=== PATIENT | male | born 1960 | race Caucasian/White ===

== ENCOUNTER 2022-11-26 17:53 | Observation (INO) ==
--- NOTE | 2022-11-26 17:58 | ED Triage Note ---
Date of Service November 26, 2022 History of Present Illness This patient was briefly evaluated while in triage. An abbreviated physical exam was performed. This patient is a 62-year-old Male who presents to the ED for evaluation of playing golf and got acutely dizzy, sweaty, nausea, near syncopal - 1730 did not pass out feels better, but feels like symptoms could come back no headache, no chest pain didn't have lunch today, doesn't drink a lot of water Physical Exam GENERAL: NAD, seated in a wheelchair CARDIOVASCULAR: RRR RESPIRATORY: CTA ABDOMEN: BS x 4. Nontender to palpation. Initial orders for labs and / or imaging were placed and patient was placed in the waiting area until a bed is available. Please see further documentation for the full ED course.
[2022-11-26 18:52] LABS: Basophils # (auto) 0.05 K/uL (0-0.2); Basophils % (auto) 0.6 %; Eosinophils # (auto) 0.07 K/uL (0-0.50); Eosinophils % (auto) 0.9 %; Hematocrit (blood only) 42.1 % (42.0-52.0); Hemoglobin 14.8 g/dl (14.0-18.0); Immature Granulocytes # (auto) 0.03 K/uL (0.01-0.20); Immature Granulocytes % (auto) 0.4 %; Lymphocytes # (auto) 2.37 K/uL (1.2-3.4); Lymphocytes % (auto) 28.9 %; Mean Corpuscular Hemoglobin 32.1 pg (25.0-34.0); Mean Corpuscular Hgb Conc 35.2 g/dL (32.0-36.0); Mean Corpuscular Volume 91.3 fL (80.0-100.0); Mean Platelet Volume 11.9 fL (9.4-12.4); Monocytes % (auto) 8.5 %; Neutrophils # (auto) 4.99 K/uL (1.40-6.50); Neutrophils % (auto) 60.7 %; Platelet Count 243 K/uL (130-400); RDW Coefficient of Variation 12.7 % (11.5-14.5); RDW Standard Deviation 42.5 fL (36.4-46.3); Red Blood Count 4.61 M/uL (4.70-6.10); White Blood Count 8.21 K/ul (4.8-10.8)
[2022-11-26 19:03] LABS: Alanine Aminotransferase 16 U/L (7-52); Albumin Globulin Ratio 1.5 (0.9-2); Albumin Level 4.4 gm/dl (3.4-5.0); Alkaline Phosphatase 53 U/L (34-104); Anion Gap 6 (3-11); Aspartate Aminotransferase 21 U/L (13-39); BUN Creatinine Ratio 13.7 (10-20); Bilirubin,Total 0.5 mg/dl (0.2-1.0); Blood Urea Nitrogen 14 mg/dl (6-23); Calcium 9.2 mg/dl (8.6-10.3); Carbon Dioxide 27 mmol/L (21-32); Chloride 105 mmol/L (98-107); Est GFR (African American) 90.2 ml/min; Est GFR (Non-African American) 77.9 ml/min; Globulin 2.9 gm/dl (2.5-4.0); Glucose 104 mg/dl (70-99(Fasting)); Potassium 3.6 mmol/L (3.5-5.1); Sodium 138 mmol/L (136-145); Total Protein 7.3 gm/dl (6.0-8.3)
[2022-11-26 19:08] LABS: Troponin I High Sensitivity 3.1 pg/ml (0-20)
--- NOTE | 2022-11-26 20:16 | CT Scan Report ---
CT OF THE HEAD WITHOUT CONTRAST CLINICAL HISTORY: dizzy, near syncopal COMPARISON STUDY: No previous studies for comparison. CT DOSE: 614.27 mGy.cm TECHNIQUE: Helical axial images of the head were obtained without IV contrast. Automated exposure con trol was utilized for the study. A dose lowering technique was utilized adhering to the principles o f ALARA. FINDINGS: No acute intracranial hemorrhage, midline shift or mass effect is present. The ventricular system is unremarkable. The basal cisterns are patent. No extra-axial collections are present. There are no findings to suggest acute dural sinus thrombosis or acute territorial infarct. No significant calvarial abnormalities are present. Visualized portions of the sinuses and mastoid air cells are fermin ar. IMPRESSION: No acute intracranial findings. ACT 112: Negative or not required by law. Electronically signed by: Joseluis Randall M.D. 11/26/2022 8:14 PM
--- NOTE | 2022-11-26 20:43 | XRay Report ---
XR chest 1V portable CLINICAL HISTORY: dizzy, near syncope COMPARISON STUDY: No previous studies for comparison. FINDINGS: Lung volumes are normal. Lungs are clear. There is no pneumothorax or pleural effusion. Car diac size is normal. Mediastinal contours are normal. There is no evidence for pulmonary edema. IMPRESSION: No acute cardiopulmonary findings. ACT 112: Negative or not required by law. Electronically signed by: Joseluis Randall M.D. 11/26/2022 8:42 PM
[2022-11-26] MEDS ORDERED: MECLIZINE HCL 25 MG TAB PO STA (20:46)
[2022-11-26] MEDS ORDERED: SODIUM CHLORIDE 0.9% 1000ML 500 ML IV ONE (20:46)
[2022-11-26] MEDS ORDERED: ONDANSETRON INJ 2 MG/ML 2 ML VIAL IV STA (20:46)
[2022-11-26] MEDS ORDERED: LORazepam 2 MG/1 ML VIAL IV STA (20:46)
--- NOTE | 2022-11-27 00:38 | Emergency Department Note ---
Impression & Plan Dizziness, Diplopia ED Provider Note INFORMANT: Patient and family ED PROVIDER(S): Redd Marc MD CHIEF COMPLAINT: Dizziness PLAN: Disposition: Admitted Condition: Good Outpatient prescription management: none Referral: None MEDICAL DECISION MAKING: Patient presented because of dizziness and vertigo-like symptoms. He had no focal findings on neurologic examination however he did have significant nystagmus and a positive Hallpike. The patient was treated with IV fluids, IV Zofran, IV Ativan, and oral meclizine. He rested and was starting to feel much better. The vomiting and nausea had stopped. Patient did ambulate to the bathroom without significant difficulty although did have some additional dizziness. On further discussion the patient noted that he was having double vision. On first history the patient denied any double vision issues. Family did note that he commented several times to them about the TV and objects in the room splitting. At this point I discussed the need for further management with MR imaging. This was ordered in order to evaluate for any posterior circulation issues. MR imaging was negative. On reassessment the patient was feeling better. Symptoms were concerning for posterior circulation TIA. Discussed the case with Dr. Sargent of neurology. He agreed with concerns and recommended further work-up in the hospital. Consultation was made with the [facility] service. Patient was evaluated in the ER and admitted for further management. Patient was given aspirin. After review of the information above and other included data, I feel the patient requires admission. Triage Nursing notes reviewed and agree them. Vital Signs: reviewed and remarkable for no significant abnormalities Prior /Outside records reviewed: none Differential diagnosis: Benign positional vertigo, dehydration, hypovolemia, anemia, tumor, infection, hypoglycemia, electrolyte abnormalities, cardiac sources, intracerebral event, toxicologic, neurologic, as well as other pathologies. Diagnostics, as interpreted by me: ECG: Twelve-lead ECG reveals sinus bradycardia [address] elevation or pression. No PACs or PVCs. Cardiac Monitoring: Cardiac monitoring ordered by me: The patient was placed on continuous cardiac monitoring and observed. It revealed a normal sinus rhythm at 61 beats per minute without ectopy or evidence of dysrhythmia. Medical decision rules: none Imaging studies: Head CT: A noncontrast CT scan of the head was performed and was negative for tumor, fracture, intracranial hemorrhage, or other acute pathology. HPI: The patient is a 62year old male who presents to the Emergency Room with complaints of dizziness. This started this afternoon while golfing and is persisting. Patient notes feeling worse with head movement. The patient also notes the following associated symptoms, nausea, sweating, feeling that he may pass out. Patient also noted blurry vision. The patient has found no relieving factors. Current pain is rated as 0/10. No prior history of the same. Pt denies LOC, headache, fevers, chills, diaphoresis, visual changes, neck pain, chest pain, breathing difficulties, nausea, abdominal pain, back pain, melena, hematochezia, urinary symptoms, numbness, weakness, lymphadenopathy, rash, or other complaints. PAST MEDICAL HISTORY: See Below, patient denies PAST SURGICAL HISTORY: See Below, SOCIAL HISTORY: See Below, HOME MEDICATIONS: See Below ALLERGIES: See Below VITALS: See Below PHYSICAL EXAMINATION: GENERAL: Awake, alert, uncomfortable-appearing, in no distress HENT: Normocephalic, atraumatic. Oropharynx unremarkable. EYES: Normal conjunctiva. Sclera non-icteric. PERRLA. EOMI. Lateral nystagmus noted. No vertical or rotatory nystagmus. NECK: Inspection normal. Non-tender. Supple. No nuchal rigidity. FROM. No masses. RESPIRATORY: Clear to auscultation. No wheezes. No rales. Normal respiratory effort. CARDIAC: Normal rate. Normal rhythm. No murmurs. No rubs. Extremities warm and well perfused. Pulses equal. No JVD. GI: Soft, non-distended. No tenderness to palpation. No rebound or guarding. No masses. RECTAL: Deferred. MUSCULOSKELETAL: Atraumatic. Chest examination reveals no tenderness. The back is symmetrical on inspection without obvious abnormality. There is no CVA tenderness to palpation. No joint edema. LOWER EXTREMITIES: Calves are equal size bilaterally and non-tender. No edema. No discoloration. NEURO: Normal sensorium. No sensory or motor deficits noted. Speech normal. Normal rapid alternating movements. Positive Hallpike SKIN: No rash or jaundice noted. Past Med/Surg History Social History Smoking Status: Never smoker Second Hand Exposure: No; Do You Dip or Chew Tobacco: No; Hx Alcohol Use: No Hx Substance Use: No Preferred Language: Malawian Communication Ability: Effective Communication Tools: Other [email or web address] Android Developer Required: Voice Beliefs That Will Affect Care: None Current Living Situation: Spouse Feels Safe at Home: Yes Assistive Devices: None Allergies Allergies Allergy/AdvReac Type Severity Reaction Status Date / Time No Known Allergies Allergy Unverified 11/26/22 20:55 Home Meds Previous Rx's Medication Instructions Recorded meclizine 12.5 mg tablet 12.5 mg PO TID PRN dizziness #20 11/27/22 tabs Results & Data (ED) Vital Signs Vital Signs - 24 hr 11/27/22 03:30 Pulse Rate 71 Respiratory Rate 16 Pulse Oximetry 95 Oxygen Delivery Method Room Air Laboratory Data 11/26/22 18:27 11/26/22 18:27 Lab Results 11/26/22 11/26/22 11/26/22 Range/Units 18:27 18:27 18:27 WBC 8.21 (4.8-10.8) K/ul RBC 4.61 L (4.70-6.10) M/uL Hgb 14.8 (14.0-18.0) g/dl Hct 42.1 (42.0-52.0) % MCV 91.3 (80.0-100.0) fL MCH 32.1 (25.0-34.0) pg MCHC 35.2 (32.0-36.0) g/dL RDW Std Deviation 42.5 (36.4-46.3) fL RDW Coeff of Roxanne 12.7 (11.5-14.5) % Plt Count 243 (130-400) K/uL MPV 11.9 (9.4-12.4) fL Immature Gran % (Auto) 0.4 % Neut % (Auto) 60.7 % Lymph % (Auto) 28.9 % [place] % (Auto) 8.5 % Eos % (Auto) 0.9 % Baso % (Auto) 0.6 % Neut # (Auto) 4.99 (1.40-6.50) K/uL Lymph # (Auto) 2.37 (1.2-3.4) K/uL [place] # (Auto) 0.70 H (0.11-0.59) K/uL Eos # (Auto) 0.07 (0-0.50) K/uL Baso # (Auto) 0.05 (0-0.2) K/uL Immature Gran # (Auto) 0.03 (0.01-0.20) K/uL Sodium 138 (136-145) mmol/L Potassium 3.6 (3.5-5.1) mmol/L Chloride 105 (98-107) mmol/L Carbon Dioxide 27 (21-32) mmol/L Anion Gap 6 (3-11) BUN 14 (6-23) mg/dl Creatinine 1.02 (0.6-1.4) mg/dl Est Cr Clr Drug Dosing Not Reportable Est GFR ( Amer) 90.2 ml/min Est GFR (Non-Af Amer) 77.9 ml/min BUN/Creatinine Ratio 13.7 (10-20) Glucose 104 H (70-99(Fasting)) mg/dl Calcium 9.2 (8.6-10.3) mg/dl Total Bilirubin 0.5 (0.2-1.0) mg/dl AST 21 (13-39) U/L ALT 16 (7-52) U/L Alkaline Phosphatase 53 (34-104) U/L Troponin I High Sens 3.1 (0-20) pg/ml Total Protein 7.3 (6.0-8.3) gm/dl Albumin 4.4 (3.4-5.0) gm/dl Globulin 2.9 (2.5-4.0) gm/dl Albumin/Globulin Ratio 1.5 (0.9-2) TSH 1.783 (0.300-4.500) uIu/ml Administered Medications Discontinued Medications Aspirin (Aspirin Chew 324 Mg) Confirm Administered Dose 324 mg .ROUTE .STK-MED ONE Stop: 11/27/22 02:55 Last Admin: 11/27/22 03:50 Dose: 324 mg Documented By: REJI Aspirin (Aspirin 81 Mg Chew) 324 mg PO NOW STA Stop: 11/27/22 03:36 Last Admin: 11/27/22 03:50 Dose: Not Given Documented By: REJI Aspirin (Aspirin 81 Mg Ectab) 81 mg PO DAILY PIYUSH Stop: 12/27/22 08:59 Last Admin: 11/27/22 08:28 Dose: 81 mg Documented By: VENECIA Gadobutrol (Gadobutrol 65ml Vial) 9.5 ml IV ONCE ONE Stop: 11/27/22 01:42 Last Admin: 11/27/22 01:41 Dose: 9.5 ml Documented By: SONY Sodium Chloride (Nss 1000ml) 500 mls @ 999 mls/hr IV .Q31M ONE Stop: 11/26/22 21:16 Last Infusion: 11/26/22 22:36 Dose: 0 mls/hr Documented By: Admin: 11/26/22 21:08 Dose: 999 mls/hr Documented By: DEVEN Sodium Chloride (Nss 1000ml) 1,000 mls @ 125 mls/hr IV .Q8H PIYUSH Stop: 11/27/22 21:44 Last Infusion: 11/27/22 07:36 Dose: 0 mls/hr Documented By: Admin: 11/27/22 06:28 Dose: 125 mls/hr Documented By: GIOVANNI Lorazepam (Lorazepam 2 Mg/1 Ml Vial) 1 mg IV NOW STA Stop: 11/26/22 20:47 Last Admin: 11/26/22 21:10 Dose: 1 mg Documented By: DEVEN Meclizine HCl (Meclizine Hcl 25 Mg Tab) 25 mg PO NOW STA Stop: 11/26/22 20:47 Last Admin: 11/26/22 21:06 Dose: 25 mg Documented By: DEVEN Ondansetron HCl (Ondansetron Inj 2 Mg/Ml 2 Ml Vial) 4 mg IV NOW STA Stop: 11/26/22 20:47 Last Admin: 11/26/22 21:09 Dose: 4 mg Documented By: DEVEN Imaging Data Radiologist's Impression: Chest X-Ray 11/26/22 17:59 XR chest 1V portable CLINICAL HISTORY: dizzy, near syncope COMPARISON STUDY: No previous studies for comparison. FINDINGS: Lung volumes are normal. Lungs are clear. There is no pneumothorax or pleural effusion. Cardiac size is normal. Mediastinal contours are normal. There is no evidence for pulmonary edema. IMPRESSION: No acute cardiopulmonary findings. ACT 112: Negative or not required by law. Electronically signed by: Joseluis Randall M.D. 11/26/2022 8:[address] 11/26/22 17:59 CT OF THE HEAD WITHOUT CONTRAST CLINICAL HISTORY: dizzy, near syncopal COMPARISON STUDY: No previous studies for comparison. CT DOSE: 614.27 mGy.cm TECHNIQUE: Helical axial images of the head were obtained without IV contrast. Automated exposure control was utilized for the study. A dose lowering technique was utilized adhering to the principles of ALARA. FINDINGS: No acute intracranial hemorrhage, midline shift or mass effect is present. The ventricular system is unremarkable. The basal cisterns are patent. No extra-axial collections are present. There are no findings to suggest acute dural sinus thrombosis or acute territorial infarct. No significant calvarial abnormalities are present. Visualized portions of the sinuses and mastoid air cells are clear. IMPRESSION: No acute intracranial findings. ACT 112: Negative or not required by law. Electronically signed by: Joseluis Randall M.D. 11/26/2022 8:14 PM Discharge Plan Visit Data Chief Complaint: Vertigo Stated Complaint: DIZZY,COULDN'T STAND,SWEATING ED Provider: Redd Marc Discharge Problem: Dizziness, Diplopia Patient Disposition: Admitted As Inpatient Discharge Instructions Interventions: ED Discharge Assessment Last Done: 11/27/22 05:29
--- NOTE | 2022-11-27 01:13 | Magnetic Resonance Report ---
Exam(s): MRA HEAD Without Contrast EXAM: MR Angiography Head Without Intravenous Contrast CLINICAL HISTORY: Reason for exam: eval for stroke, diploplia. TECHNIQUE: Magnetic resonance angiography images of the head without intravenous contrast. COMPARISON: CT examination of the head from earlier the same day. FINDINGS: Right internal carotid artery: No acute findings. Intracranial segment is patent with no significant stenosis. No aneurysm. Right anterior cerebral artery: Unremarkable. No occlusion or significant stenosis. No aneurysm. Right middle cerebral artery: Unremarkable. No occlusion or significant stenosis. No aneurysm. Right posterior cerebral artery: Unremarkable. No occlusion or significant stenosis. No aneurysm. Right vertebral artery: Unremarkable as visualized. Left internal carotid artery: No acute findings. Intracranial segment is patent with no significant stenosis. No aneurysm. Left anterior cerebral artery: Unremarkable. No occlusion or significant stenosis. No aneurysm. Left middle cerebral artery: Unremarkable. No occlusion or significant stenosis. No aneurysm. Left posterior cerebral artery: Unremarkable. No occlusion or significant stenosis. No aneurysm. Left vertebral artery: Unremarkable as visualized. Basilar artery: Unremarkable. No occlusion or significant stenosis. No aneurysm. IMPRESSION: Normal head/brain MRA. Electronically signed by: Nabeel Shaver MD 11/27/22 01:12 AM
--- NOTE | 2022-11-27 01:23 | Magnetic Resonance Report ---
Exam(s): MRI HEAD Without Contrast EXAM: MR Head Without Intravenous Contrast CLINICAL HISTORY: Reason for exam: stroke eval, vertigo, diploplia. TECHNIQUE: Magnetic resonance images of the head/brain without intravenous contrast in multiple planes. COMPARISON: CT examination from earlier the same day. FINDINGS: Brain: The cerebral and cerebellar sulci are mildly prominent consistent with mild brain atrophy. There are a few punctate areas of abnormal T2 signal in the deep cerebral white matter most consistent with mild small vessel ischemic/degenerative changes. No hemorrhage. Ventricles: Unremarkable. No ventriculomegaly. Bones/joints: Unremarkable. Sinuses: There is mild scattered sinus mucosal disease. No acute sinusitis. Mastoid air cells: Unremarkable as visualized. No mastoid effusion. Orbits: Unremarkable as visualized. IMPRESSION: No acute findings in the head/brain. Electronically signed by: Nabeel Shaver MD 11/27/22 01:22 AM
[2022-11-27] MEDS ORDERED: GADOBUTROL 65ML VIAL IV ONE (01:41)
--- NOTE | 2022-11-27 01:55 | Magnetic Resonance Report ---
Exam(s): MRA NECK W/WO Contrast IV Amt: 9.5cc gadavist EXAM: MR Angiography Neck Without and With Intravenous Contrast CLINICAL HISTORY: Reason for exam: eval for stroke, diploplia. TECHNIQUE: Magnetic resonance angiography images of the neck without and with intravenous contrast. CONTRAST: Patient received 9.5cc gadavist of IV contrast COMPARISON: No relevant prior studies available. FINDINGS: Right common carotid artery: Unremarkable. No significant stenosis. No dissection or occlusion. Right internal carotid artery: Unremarkable. Extracranial segment is patent with no significant stenosis. No dissection or occlusion. Right external carotid artery: Unremarkable. No occlusion. Right vertebral artery: Unremarkable. No significant stenosis. No dissection or occlusion. Left common carotid artery: Unremarkable. No significant stenosis. No dissection or occlusion. Left internal carotid artery: Unremarkable. Extracranial segment is patent with no significant stenosis. No dissection or occlusion. Left external carotid artery: Unremarkable. No occlusion. Left vertebral artery: Unremarkable. No significant stenosis. No dissection or occlusion. Soft tissues: Unremarkable as visualized. CAROTID STENOSIS REFERENCE USING NASCET CRITERIA: % ICA stenosis = (1 - narrowest ICA diameter/diameter of distal cervical ICA) x 100. Mild - <50% stenosis. Moderate - 50-69% stenosis. Severe - 70-94% stenosis. Near occlusion - 95-99% stenosis. Occluded - 100% stenosis. IMPRESSION: Normal neck MRA. Electronically signed by: Nabeel Shaver MD 11/27/22 01:54 AM
[2022-11-27] MEDS ORDERED: ASPIRIN CHEW 324 MG ONE (02:54)
[2022-11-27] MEDS ORDERED: ASPIRIN 81 MG CHEW PO STA (03:35)
[2022-11-27] MEDS ORDERED: ONDANSETRON INJ 2 MG/ML 2 ML VIAL IV PRN (05:45)
[2022-11-27] MEDS ORDERED: MECLIZINE 12.5 MG TAB PO PRN (05:45)
[2022-11-27] MEDS ORDERED: NITROGLYCERIN SL 0.4 MG/TAB TAB SL PRN (05:45)
[2022-11-27] MEDS ORDERED: SODIUM CHLORIDE 0.9% 1000ML 1,000 ML IV SCH (05:45)
[2022-11-27] MEDS ORDERED: ACETAMINOPHEN 325 MG TAB PO PRN (05:45)
[2022-11-27] MEDS ORDERED: PHARMACIST DISCHARGE MED REC CONSULT PRN (05:45)
--- NOTE | 2022-11-27 06:44 | History and Physical Report ---
DATE OF ADMISSION: 11/27/2022. CHIEF COMPLAINT: Vertigo. HISTORY OF PRESENT ILLNESS: This is a 62-year-old male with no significant past medical history. The patient did not go to the doctor for the last 20 years. Comes with vertigo. The patient was golfing and around 5:00 p.m. he suddenly felt dizziness, spinning kind of feeling associated with nausea. He came to the ER and he was given meclizine, Ativan, and Zofran. Initial CT of the head was okay. At one point of time, he felt double vision. ER did an MRI of the head and MRA head/neck, which was unremarkable, ER notified neurology because of the symptoms and also the question of TIA getting admitted for observation. Currently, his vertigo is almost resolved. Nausea has improved. Denies any headache. No blurred visions, no earache, no runny nose, no sore throat, no cough, no recent upper respiratory infection. No chest pain or shortness of breath, no difficulty swallowing. No abdominal pain. Normal bowel and bladder movements. No swelling in the legs. Currently, resting comfortably and hemodynamically stable. He says his father had a heart attack at 69 and his uncle had a heart attack at 69. His brother had a stroke at 65. ALLERGIES: No known drug allergies. PAST MEDICAL HISTORY: As mentioned above. PAST SURGICAL HISTORY: None. MEDICATIONS: None. FAMILY HISTORY: Brother had a stroke a 65; father and uncle had ND at age of 69. SOCIAL HISTORY: Denies smoking. Alcohol, drinks 2-3 beers per week. No drug use. REVIEW OF SYSTEMS: As per HPI. Rest of review of systems is negative. PHYSICAL EXAMINATION: GENERAL: The patient is of moderate build, not in acute distress. VITAL SIGNS: Temperature 36, pulse 71, respiratory rate 16, blood pressure 125/73, oxygen 95% on room air. HEENT: Pupils equal, round, and reactive to light. Extraocular muscles intact. Mild horizontal nystagmus present. Oral mucosa moist. NECK: No JVD. No neck masses. CARDIOVASCULAR: S1 and S2 heard. Regular rate and rhythm. No murmur, no gallop. RESPIRATORY SYSTEM: Normal AP diameter. No accessory muscle use. No wheezing or crackles. ABDOMEN: Soft, bowel sounds present, nontender, no distention. CENTRAL NERVOUS SYSTEM: Alert and oriented. Speech is clear. No facial droop. Power 5/5 in all extremities. Coordination of movements normal. No pronator drift. Sensation is intact. EXTREMITIES: No edema, no erythema. LABORATORY DATA: WBC 8.2, hemoglobin 14.8, hematocrit 42.1, platelets 243. Sodium 138, potassium 3.6, chloride 105, bicarb 27, BUN 14, creatinine 1, serum glucose 104, calcium 9.2, total bilirubin 0.5, AST 21, ALT 16, alkaline phosphatase 53. Troponin 3.1. TSH 1.7. IMAGING DATA: Brain MRI, no acute findings. Head MRA, no acute findings. Neck MRA, no acute findings. CT of the head, no acute findings. Chest x-ray, no acute findings. EKG: Sinus bradycardia at a rate of 58, no acute ST changes seen. ASSESSMENT AND PLAN: This is a 62-year-old male, who presents with vertigo. 1. Vertigo: Brief episode of double vision.Has horizontal nystagmus Possible transient ischemic attack. Initial workup with CT of the head and brain MRI and MRA of the head and neck unremarkable. Received aspirin. Neurology notified by the ER. Will observe in the hospital in the tele floor. Will do echocardiogram. PT, OT, speech evaluation. Consult neurology in the a.m. Follow the lipid profile and HbA1c levels as per the protocol. IV fluids, n.p.o. and speech consult. Meclizine p.r.n. 2. Deep venous thrombosis prophylaxis: Sequential compression devices. DISPOSITION: Observation in the tele floor. PT, OT prior to discharge. Social service to help with discharge planning. Job ID: [id number] [facility]
[2022-11-27] MEDS ORDERED: ASPIRIN 81 MG ECTAB PO SCH (09:00)
--- NOTE | 2022-11-27 11:40 | Neurology Consultation ---
Date of Consultation November 27, 2022 Assessment & Plan (1) BPPV (benign paroxysmal positional vertigo): (2) Vertigo: Plan 62-year-old male with probable benign positional paroxysmal vertigo. He has a positive Carter-Hallpike to the left. His symptoms are significantly improved this morning. No evidence of acute or subacute stroke on MRI, no vascular lesion on MRA of the head and neck. No known history of cardiovascular risk factors such as hypertension, dyslipidemia, or diabetes mellitus. He does not take any prescription medications or blood thinners as an outpatient. He does have chronic hearing loss, left greater than right, no tinnitus or ear pain. Vertebrobasilar insufficiency, vertebral artery dissection, brainstem stroke, would appear to be adequately excluded at this time. He is clinically improved this morning. At this point, I do not think this patient would require daily low-dose aspirin therapy or other blood thinners. May utilize meclizine for recurrent symptoms. Could also consider referral to physical therapy for Sly maneuvers and/or habituation exercises if necessary going forward. No further immediate neurologic recommendations. Would not require additional outpatient neurology follow-up. History of Present Illness Reason for Consultation: Strokelike symptoms Requesting Physician: Dr. Lamb Attending Physician: Bull Flood MD History of Present Illness The patient is a 62-year-old male who presented to the emergency department yesterday for further assessment of an episode of intense vertigo with associated nausea and diaphoresis that began acutely while he was playing golf. He had some inducible nystagmus during his assessment in the emergency department and he was felt to probably have benign positional paroxysmal vertigo. He has never had similar symptoms in the past. He does have chronic hearing loss, left greater than right, wears hearing aids, no tinnitus or ear pain, no recent URI or other infections reported. His symptoms were quite severe, however, with continued nystagmus, had also complained of some transient diplopia prompting concern for possible strokelike episode. An MRI of the brain including MRA of the head and neck were unremarkable, however. I had discussed his case with the attending emergency department physician last night. Given the severity of his symptoms, acuity, possibility of posterior circulation stroke, admission to the [facility] was recommended for formal stroke/TIA evaluation. It is notable that he does not have any known past medical history although he has admittedly not seen a physician in nearly 20 years. No known history of hypertension, dyslipidemia, or diabetes, he is a non-smoker. 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 This morning, for the most part, he feels improved although continues to report a vague feeling of dizziness or imbalance with movement. No diplopia, dysarthria, drop attack, or focal weakness of the limbs. Allergies Allergy/AdvReac Type Severity Reaction Status Date / Time No Known Allergies Allergy Unverified 11/26/22 20:55 Home Medications Medication Instructions Recorded Confirmed Type No Known Home Medications 11/26/22 11/26/22 History Patient History Social History Smoking Status: Never smoker Second Hand Exposure: No; Do You Dip or Chew Tobacco: No; Tobacco Cessation Education Requested by Patient: No Hx Alcohol Use: No Hx Substance Use: No Preferred Language: Kinyarwanda Communication Ability: Effective Communication Tools: Other [employer] Required: Voice Beliefs That Will Affect Care: None Current Living Situation: Spouse Feels Safe at Home: Yes Safety Concerns: Feels Safe At This Time Assistive Devices: None Review of Systems Constitutional: no fever and no chills Eyes: as per Subjective / HPI Ear, Nose, Mouth, Throat: as per Subjective / HPI Respiratory: no cough and no dyspnea Cardiovascular: no chest pain and no palpitations Gastrointestinal: no nausea and no vomiting Genitourinary: no dysuria Musculoskeletal: no back pain, no neck pain and no myalgia Integumentary: no rash and no lesions Neurologic: as per Subjective / HPI Psychiatric: no depression and no anxiety Hematologic / Lymphatic: no easy bleeding and no easy bruising Exam (Neuro) Constitutional: well developed and well nourished; no acute distress Eyes: normal visual arriaga by confrontation, PERRL, normal accommodation, EOM intact bilaterally and + nystagmus; no fundoscopic abnormality and no papilledema Cardiovascular: Vessels: normal carotid upstroke; no carotid bruit Neurologic: Oriented to:: Person, Place and Time Memory: Short Term Intact and Remote Intact Attention: Span Intact and Concentration Intact Language: Naming Objects and Repeating Phrases Speech Fluency: negative Dys arthria Speech Aphasia: negative Aphasia Fund of Knowledge: Current Events, Past History and Vocabulary Cranial Nerves: Normal II (Visual arriaga full to confrontation, visual acuity normal), III, IV, (Pupils equal round reactive to light and accommodation, eye movements normal), V (Facial sensation intact), VII (There is no facial droop or weakness), VIII (Hearing intact), IX, X (Palate elevates to midline), XI (Shoulder shrug intact) and XII (Tongue protrudes to midline) Motor Strength: Normal Lower Extremities and Normal Upper Extremities; negative Pronator Drift Motor Tone: Normal Lower Extremities and Normal Upper Extremities Muscle Bulk/Involuntary Movements: No Involuntary Movements; negative Muscle Atrophy Sensation: Light Touch Intact, Pain/Temperature Intact, Vibration Intact and Proprioception Intact Coordination: Normal; negative Limited Balance, Dysdiadochokinesia, Finger-Nose Abnormal or Heel-Pool Abnormal Deep Tendon Reflexes: Rt Triceps: 2+, Lt Triceps: 2+, Rt Biceps: 2+, Lt Biceps: 2+, Rt Brachioradialis: 2+, Lt Brachioradialis: 2+, Rt Patellar: 2+, Lt Patellar: 2+, Rt Ankle: 2+ and Lt Ankle: 2+ Special Tests: negative Babinski Present Gait: Normal Station and Gait Details: I am able to elicit a few beats of gaze evoked nystagmus to the left. [place]- Hallpike was positive to the left as well. He does have a very slight right upper lid ptosis, chronic according to the patient. There is no pupillary asymmetry. Again, tongue and palate midline, no ataxia with [id number] or [id number], no dysarthria. He does have relatively reduced hearing to finger rub on the left, chronic. Results & Data Vital Signs (Past 12 Hours) Vital Signs Temp Pulse Pulse Resp BP BP Pulse Ox 11/27/22 11:18 36.7 C 64 18 132/77 96 11/27/22 05:47 59 L 11/27/22 07:32 36.4 C L 54 L 17 131/75 99 11/27/22 06:22 11/27/22 05:58 36.3 C L 56 L 16 133/78 93 11/27/22 05:00 59 L 12 139/72 95 11/27/22 04:30 65 13 123/92 95 11/27/22 04:27 73 13 138/80 97 11/27/22 04:36 60 11/27/22 04:00 62 13 96 11/27/22 03:30 71 16 95 04/27/23 02:33 67 18 96 11/27/22 01:43 66 19 125/73 98 11/27/22 01:41 125/73 95 11/27/22 00:30 61 14 122/76 95 11/27/22 00:00 64 14 130/86 96 11/27/22 00:20 64 11/26/22 23:51 62 17 134/82 95 11/26/22 23:49 75 16 96 O2 Del Method 11/27/22 11:18 Room Air 11/27/22 05:47 11/27/22 07:32 Room Air 11/27/22 06:22 Room Air 11/27/22 05:58 Room Air 11/27/22 05:00 Room Air 11/27/22 04:30 Room Air 11/27/22 04:27 Room Air 11/27/22 04:36 11/27/22 04:00 Room Air 11/27/22 03:30 Room Air 11/27/22 02:33 Room Air 11/27/22 01:43 Room Air 11/27/22 01:41 Room Air 11/27/22 00:30 Room Air 11/27/22 00:00 Room Air 11/27/22 00:20 11/26/22 23:51 Room Air 11/26/22 23:49 Room Air Laboratory Results WBC 8.21, hemoglobin 14.8, hematocrit 42.1, platelet count 243, sodium 138, potassium 3.6, BUN 14, creatinine 1.02, AST 21, ALT 16, TSH 1.73, SARS-CoV-2 negative Diagnostic Findings I did independently review the MRI of the brain including MRA of the head and neck. No abnormalities identified. No acute or subacute stroke, no hemorrhage, no hydrocephalus, no vascular lesion. No thrombosis, no dissection. The right vertebral artery is dominant. Echocardiogram completed today unremarkable, no cardioembolic source, normal left ventricular wall motion, EF 55 to 60%. Left atrial size normal, no interatrial shunt. Electrocardiogram reveals sinus bradycardia, 58 bpm. PG Care Time/CCT Total # of Minutes Spent Total Time Spent with Patient: Total time spent is greater than 50% in coordination of care (as documented) at patient's floor/unit and/or counseling patient: 60 minutes Coding Level of Care Code 41623 INT INP/OBS CARE 2/55MIN Diagnoses BPPV (benign paroxysmal positional vertigo) H81.10 Vertigo R42
--- NOTE | 2022-11-27 16:03 | Discharge Summary ---
Date of Service November 27, 2022 Admission HPI Per Admitting Provider This is a 62-year-old male with no significant past medical history. The patient did not go to the doctor for the last 20 years. Comes with vertigo. The patient was golfing and around 5:00 p.m. he suddenly felt dizziness, spinning kind of feeling associated with nausea. He came to the ER and he was given meclizine, Ativan, and Zofran. Initial CT of the head was okay. At one point of time, he felt double vision. ER did an MRI of the head and MRA head/neck, which was unremarkable, ER notified neurology because of the symptoms and also the question of TIA getting admitted for observation. Currently, his vertigo is almost resolved. Nausea has improved. Denies any headache. No blurred visions, no earache, no runny nose, no sore throat, no cough, no recent upper respiratory infection. No chest pain or shortness of breath, no difficulty swallowing. No abdominal pain. Normal bowel and bladder movements. No swelling in the legs. Currently, resting comfortably and hemodynamically stable. He says his father had a heart attack at 69 and his uncle had a heart attack at 69. His brother had a stroke at 65. Admission Exam Per Admitting Provider GENERAL: The patient is of moderate build, not in acute distress. VITAL SIGNS: Temperature 36, pulse 71, respiratory rate 16, blood pressure 125/73, oxygen 95% on room air. HEENT: Pupils equal, round, and reactive to light. Extraocular muscles intact. Mild horizontal nystagmus present. Oral mucosa moist. NECK: No JVD. No neck masses. CARDIOVASCULAR: S1 and S2 heard. Regular rate and rhythm. No murmur, no gallop. RESPIRATORY SYSTEM: Normal AP diameter. No accessory muscle use. No wheezing or crackles. ABDOMEN: Soft, bowel sounds present, nontender, no distention. CENTRAL NERVOUS SYSTEM: Alert and oriented. Speech is clear. No facial droop. Power 5/5 in all extremities. Coordination of movements normal. No pronator drift. Sensation is intact. EXTREMITIES: No edema, no erythema. Principal Diagnosis Vertigo likely due to BPPV Discharge Exam Constitutional: WD/WN, vitals as above, NAD, sitting up in bed, pleasant, conversing easily Head: Normocephalic, Atraumatic Eyes: PERRL, conjunctivae normal, anicteric sclerae ENMT: external ear and nose normal, oropharynx normal Neck: trachea midline, no thyromegaly normal visual inspection Respiratory: normal respiratory effort, lungs clear to auscultation, no wheeze, rales, rhonchi. Normal insp/exp effort, no accessory muscle use Cardiovascular: RRR, no murmur, no edema Vessels: no JVD or carotid bruit Chest: normal inspection of chest Abdomen: normal bowel sounds, soft, nontender, no hepatosplenomegaly Musculoskeletal: no cyanosis or clubbing, extremities motor strength 5/5 Skin: no rashes, warm and dry normal turgor Neurologic: Nystagmus on left side PERRL, EOMI, accommodation nl, no face palsy, no dysarthria CN's II-XI intact bilaterally and moves all extremities Psychiatric: A+Ox3, euthymic affect Lymphatic: no cervical or axillary lymphadenopathy : deferred Discharge Data Allergies Allergy/AdvReac Type Severity Reaction Status Date / Time No Known Allergies Allergy Unverified 11/26/22 20:55 Consultations 11/27/22 08:00 Consult Neurology Routine Ordered Studies 11/26/22 17:59 CT head/brain wo con Stat 11/27/22 00:17 MR angio neck wo/w con Stat 11/27/22 00:18 MR angio head wo con Stat MR brain wo con Stat Hospital Course (1) BPPV (benign paroxysmal positional vertigo): (2) Vertigo: Plan Patient is a 62-year-old male with no significant past medical history presented to the hospital with multiple episode of dizziness. On presentation to the ED, patient had horizontal nystagmus evoked when looking at the left side. He did not have any other focal neurological symptoms. He underwent CT head, MRA brain and MRI brain which were unremarkable. Neurology was consulted; he was found to have Carter-Hallpike Positive on left side. Patient underwent PT OT evaluation with Sly maneuver. Patient reported slight improvement in the symptoms. Patient was discharged home with instruction to follow-up with primary care doctor. An appointment with outpatient vestibular therapy will be set up for him if the symptoms persist. Total Time Total Time Spent Total Time Spent (In Minutes): 40 Total Time Includes: Examination of the Patient, Discharge Planning, Medication Reconciliation, Communication With Other Providers and Other Discharge Plan Discharge Items Patient Disposition: Home - Self-Care Reason For Visit: VERTIGO Discharge Diagnosis: Benign paroxysmal positional vertigo Activity: Resume your previous activity Non-emergency contact: Primary Care Provider Call non-emergency contact if: you have any medication questions Follow-up/Referrals: [facility] [Other] ([facility] [address] [place], [address] We will fax an order for Vestibular Therapy to the [place] office. [facility] will call you with details for your appointment.) Ernesto Amaya MD [Primary Care Provider] - (Date & Time 12/04/2022 8:20 AM Provider Ernesto Amaya MD Department [facility] ) Diet: Regular Addtl Attending Provider Instructions: You were admitted to the hospital with vertigo. You had brain imaging done with MRI which ruled out a stroke. The most likely cause for the vertigo is benign paroxysmal positional vertigo. You are prescribed meclizine 12.5mg to be taken as needed for vertigo. You will likely need vestibular therapy if the symptoms persist. The case management will set up an appointment with [facility] (preferably in [place]) You have a primary care doctor's appointment set up for you on December 04, 2022. Pending Studies at Discharge: No Stand-Alone Forms: My [facility] RateItAll, Smoking Cessation Medications and DC Order Prescriptions: New meclizine 12.5 mg Tablet 12.5 mg PO TID PRN (Reason: dizziness) Qty: 20 0RF Discharge Orders: Discharge Order (Routine); Ordered 11/27/22 Ordered By: Bull Flood Admission Data Admit Date/Time: 11/27/22 04:00 Attending Provider: Bull Flood Admit Provider: Rashad Lamb Primary Care Provider: Ernseto Amaya Other Providers: Marquis Sargent Other Interventions: Discharge Summary Assessment (RN) Last Done: 11/27/22 15:59
--- NOTE | 2022-11-27 22:44 | Electrocardiogram Report ---
Test Reason : Blood Pressure : / mmHG Vent. Rate : 058 BPM Atrial Rate : 058 BPM P-R Int : 158 ms QRS Dur : 088 ms QT Int : 434 ms P-R-T Axes : 052 023 043 degrees QTc Int : 426 ms Sinus bradycardia Otherwise normal ECG No previous ECGs available Confirmed by Prakash Noriega ([id number]) on 11/27/2022 10:43:33 PM Referred By: REFERRED SELF Confirmed By:Prakash Noriega
== END 2022-11-27 16:24 | disposition home or self-care (01) ==
LOC: ED 17:53 → INTOOBSV 11-27 04:00 → 2S 11-27 04:00
DX: H81.10 Benign paroxysmal vertigo, unspecified ear